=== PATIENT | female | born 1965 | race Caucasian/White ===

== ENCOUNTER 2016-11-30 23:56 | Emergency (ER) | payer SELFPAY ==
[~2016-11-30] VITALS: Ht 165.1 cm; Wt 82.5 kg
[~2016-11-30 23:56] MED LIST: CIPR500T4 PO; HYDR-906 PO; METR500T PO; ONDA4TAB14 PO
[2016-12-01 00:33] VITALS: Ht 165.1 cm; Wt 82.5 kg
[2016-12-01] MEDS ORDERED: ACETAMINOPHEN 325 MG TAB PO ONE (02:30)
[2016-12-01 02:49] LABS: ADD SCAN DIFF NO
[2016-12-01 02:51] LABS: BASOPHILS % 0.1 % (0.0-2.0); EOSINOPHILS % 0.1 % (0.0-7.0); HEMATOCRIT 32.4 % (37.0-47.0); HEMOGLOBIN 9.7 g/dl (12.0-16.0); LYMPHOCYTES # 1.2 10^3/ul (0.8-2.9); LYMPHOCYTES % 13.9 % (15.0-51.0); MEAN CORPUSCULAR HEMOGLOBIN 21.1 pg (29.0-33.0); MEAN CORPUSCULAR HGB CONC 29.9 g/dl (32.0-37.0); MEAN CORPUSCULAR VOLUME 70.6 fl (82.0-101.0); MEAN PLATELET VOLUME 9.2 fl (7.4-10.4); MONOCYTE # 0.4 10^3/ul (0.3-0.9); MONOCYTES % 4.4 % (0.0-11.0); NEUTROPHILS % 81.2 % (39.0-77.0); PLATELET COUNT 408 10^3/UL (140-415); RED BLOOD COUNT 4.59 10^6/ul (4.20-5.40); RED CELL DISTRIBUTION WIDTH 18.8 % (11.5-14.5); WHITE BLOOD COUNT 8.6 10^3/ul (4.8-10.8)
[2016-12-01 02:53] LABS: ADD UMIC YES; UR BILIRUBIN (Dip) NEGATIVE (NEGATIVE); UR BLOOD (Dip) 1+ (NEGATIVE); UR CLARITY CLEAR (CLEAR); UR COLOR LT. YELLOW (YELLOW); UR GLUCOSE (Dip) NEGATIVE (NEGATIVE); UR KETONES (Dip) NEGATIVE (NEGATIVE); UR LEUKOCYTE ESTERASE (Dip) NEGATIVE (NEGATIVE); UR NITRITE (Dip) NEGATIVE (NEGATIVE); UR TOTAL PROTEIN (Dip) NEGATIVE (NEGATIVE); UR UROBILINOGEN (Dip) 0.2 E.U./dL (0.1-1.0)
[2016-12-01 03:12] LABS: ALBUMIN 5.1 g/dl (3.3-4.9); ALBUMIN/GLOBULIN RATIO 1.5; BILIRUBIN,INDIRECT 0.3 mg/dl (0-1.1); BILIRUBIN,TOTAL 0.3 mg/dl (0.2-1.3); CALCIUM 9.9 mg/dl (8.4-10.2); CREATININE 0.76 mg/dl (0.44-1.00); TOTAL PROTEIN 8.5 g/dl (6.1-8.1)
[2016-12-01 03:13] LABS: UR SQUAMOUS EPITHELIAL CELL RARE; URINE RBCS 0-2 /HPF (0)
--- NOTE | 2016-12-01 04:10 | ERA ---
ER Documentation Chief Complaint Date/Time DATE: 12/01/16 TIME: 04:07 Chief Complaint flank pain, oliguria,[place] HPI This is a 51-year-old female presenting for mild epigastric tenderness 1 week. Patient describes the pain as radiating to the back. Patient has a history of a cholecystectomy and an appendectomy. Patient has not had symptoms like this before. Tolerates p.o. Patient denies anorexia, weight loss, migrating pain, constipation, diarrhea, postprandial abdominal pain, new or recently changed medications, genital pain or ingestion of new or undercooked food. Patient has not taken any medication to relieve the symptoms. Patient denies any alleviating or relieving factors including position of body. ROS All systems reviewed and are negative except as per history of present illness. Medications Home Meds Active Scripts Ranitidine Hcl* (Zantac*) 150 Mg Tablet, 150 MG PO BID Y for EPIGASTRIC PAIN, # 30 TAB Prov:MARTELL STEPHENSON PA-C 12/01/16 Hydrocodone/Acetaminophen ([place] 5-325 Tablet) 1 Each Tablet, 1 TAB PO Q6H Y for PAIN, #20 TAB Prov:SHIRA MARQUES NP 02/21/16 Ondansetron (Ondansetron Odt) 4 Mg Tab.rapdis, 4 MG PO Q8 Y for NAUSEA AND/OR VOMITING, #30 TAB Prov:SHIRA MARQUES NP 02/21/16 Ciprofloxacin Hcl* (Ciprofloxacin Hcl*) 500 Mg Tablet, 500 MG PO BID for 10 Days , TAB Prov:SHIRA MARQUES NP 02/21/16 Metronidazole* (Flagyl*) 500 Mg Tablet, 500 MG PO TID for 10 Days, TAB Prov:SHIRA MARQUES NP 02/21/16 Reported Medications [none] Unknown Strength No Conflict Check 02/21/16 Allergies Allergies: Coded Allergies: No Known Allergy (Verified , 10/25/07) PMhx/Soc History of Surgery: Yes (appendectomy, cholecystectomy) Anesthesia Reaction: No Hx Neurological Disorder: No Hx Respiratory Disorders: No Hx Cardiac Disorders: No Hx Psychiatric Problems: No Hx Miscellaneous Medical Probl: Yes (history of diverticulitis) Hx Alcohol Use: No Hx Substance Use: No Hx Tobacco Use: No Smoking Status: Never smoker Physical Exam Vitals Vital Signs Date Time Temp Pulse Resp B/P Pulse Ox O2 Delivery O2 Flow Rate FiO2 12/01/16 00:33 98.3 74 18 135/62 99 Physical Exam Const: [] Head: Atraumatic Eyes: Normal Conjunctiva ENT: Normal External Ears, Nose and Mouth. Neck: Full range of motion..~ No meningismus. Resp: Clear to auscultation bilaterally Cardio: Regular rate and rhythm, no murmurs Abd: Soft, non tender, non distended. Normal bowel sounds Skin: No petechiae or rashes Back: No midline or flank tenderness Ext: No cyanosis, or edema Neur: Awake and alert Psych: Normal Mood and Affect Result Diagram: 12/01/16 0240 12/01/16 0240 Results 24 hrs Laboratory Tests Test 12/01/16 02:40 White Blood Count 8.610^3/ul Red Blood Count 4.5910^6/ul Hemoglobin 9.7g/dl Hematocrit 32.4% Mean Corpuscular Volume 70.6fl Mean Corpuscular Hemoglobin 21.1pg Mean Corpuscular Hemoglobin Concent 29.9g/dl Red Cell Distribution Width 18.8% Platelet Count 65152^3/UL Mean Platelet Volume 9.2fl Neutrophils % 81.2% Lymphocytes % 13.9% Monocytes % 4.4% Eosinophils % 0.1% Basophils % 0.1% Nucleated Red Blood Cells % 0.0/100WBC Neutrophils # 7.010^3/ul Lymphocytes # 1.210^3/ul Monocytes # 0.410^3/ul Eosinophils # 0.010^3/ul Basophils # 0.010^3/ul Nucleated Red Blood Cells # 0.010^3/ul Urine Color LT. YELLOW Urine Clarity CLEAR Urine pH 6.0 Urine Specific Edwards <=1.005 Urine Ketones NEGATIVE Urine Nitrite NEGATIVE Urine Bilirubin NEGATIVE Urine Urobilinogen 0.2 E.U./dL Urine Leukocyte Esterase NEGATIVE Urine Microscopic RBC 0-2/HPF Urine Microscopic WBC NONE SEEN/HPF Urine Squamous Epithelial Cells RARE Urine Hemoglobin 1+ Urine Glucose NEGATIVE% Urine Total Protein NEGATIVE Sodium Level 143mmol/L Potassium Level 4.0mmol/L Chloride Level 106mmol/L Carbon Dioxide Level 27mmol/L Anion Gap 14 Blood Urea Nitrogen 13mg/dl Creatinine 0.76mg/dl Glucose Level 121mg/dl Calcium Level 9.9mg/dl Total Bilirubin 0.3mg/dl Direct Bilirubin 0.00mg/dl Indirect Bilirubin 0.3mg/dl Aspartate Amino Transf (AST/SGOT) 24IU/L Alanine Aminotransferase (ALT/SGPT) 29IU/L Alkaline Phosphatase 106IU/L Troponin I < 0.012ng/ml Total Protein 8.5g/dl Albumin 5.1g/dl Globulin 3.40g/dl Albumin/Globulin Ratio 1.50 Lipase 132U/L Current Medications Medications (Trade) Dose Ordered Sig/Leo Route PRN Reason Start Time Stop Time Status Last Admin Dose Admin Acetaminophen (Tylenol Tab) 650 mg ONCE ONCE PO 12/01/16 02:30 12/01/16 02:31 DC 12/01/16 02:54 Procedures/MDM Patient was evaluated and worked up for epigastric abdominal discomfort. Patient was given acetaminophen for pain relief. The workup included labs and a test. Labs were unremarkable only showing some hematuria. My supervising physician recommended to get troponin to rule out [place]. Went ahead and obtained a troponin which had a negative result. The current most likely diagnosis is gastritis. The treatment plan with us include Zantac for symptomatic relief. At this time I do not suspect acute pancreatitis, cholangitis, myocardial/ Intestinal ischemia, pneumonia, hernia, or esophageal rupture. I am also unable to rule out this time any cause of chronic iron deficiency anemia including cancer, ulcer, etc. On repeat exam, the abdomen has slightly improved with less tenderness. I spoke to my attending who agrees with the assessment and plan. The patient is well appearing, and tolerates PO. I have spoke with the patient regarding their condition and future management. They have verbally responded that they understand their status and treatment plan. The patients vitals are stable, and their current condition is appropriate for discharge. The patient will be given discharge instructions with return precautions. Departure Diagnosis: Primary Impression: Lower abdominal pain Condition: Stable Additional Instructions: Follow up with your PCP within the next 1-3 days for a more thorough evaluation and a possible referral to a specialist. Return the the emergency department immediately if symptoms worsen or change. If you have any questions regarding medications, ask your pharmacist or us before you leave. If any adverse reactions occur while taking your medications, discontinue the treatment and return to the emergency department immediately. Take your medications as directed, and complete the entire course of treatment. MARTELL STEPHENSON PA-C Dec 01, 2016 04:10
[2016-12-01] MEDS ORDERED: RANI150T9 PO (04:28)
[2016-12-01 04:39] VITALS: BP 123/63; PULSE 67; RESP 16
== END 2016-12-01 04:41 | disposition home or self-care (01) ==
LOC: FTE 23:56
DX: R10.30 Lower abdominal pain, unspecified (principal)
CPT/HCPCS: 36415; 80053; 81001; 83690; 84484; 85025; 99283

== ENCOUNTER 2016-12-06 23:23 | Emergency (ER) | payer SELFPAY ==
[~2016-12-06] VITALS: Ht 162.6 cm; Wt 81.7 kg
[~2016-12-06 23:23] MED LIST changes: +RANI150T9 PO
[2016-12-06 23:25] VITALS: Ht 162.6 cm; Wt 81.7 kg
--- NOTE | 2016-12-07 00:16 | ERA ---
ER Documentation Chief Complaint Date/Time DATE: 12/07/16 TIME: 00:16 Chief Complaint right flank pain x 3 days HPI The patient is a 51-year-old female, presenting to the ER because of right flank and right lower back pain intermittently for 1 week. She was in the ER approximately 5 days ago. She denies fever, chills, neck pain, chest pain, dyspnea. She complains of nausea and vomiting mostly mucus, denies diarrhea, constipation, dysuria. She does not smoke nor drink Past medical history: Gastritis Past surgical history: Appendectomy, cholecystectomy ROS All systems reviewed and are negative except as per history of present illness. Medications Home Meds Active Scripts Hydrocodone/Acetaminophen ([place] 5-325 Tablet) 1 Each Tablet, 1 TAB PO Q6H Y for PAIN, #7 TAB Prov:MARTELL NICOLE MD 12/07/16 Ranitidine Hcl* (Zantac*) 150 Mg Tablet, 150 MG PO BID Y for EPIGASTRIC PAIN, # 30 TAB Prov:MARTELL STEPHENSON PA-C 12/01/16 Reported Medications Acetaminophen* (Acetaminophen*) 500 MG Extra Strength Tablet, 2000 MG PO Q4H Y for PAIN AND OR ELEVATED TEMP, TAB 12/07/16 Discontinued Reported Medications [none] Unknown Strength No Conflict Check 02/21/16 Discontinued Scripts Hydrocodone/Acetaminophen ([place] 5-325 Tablet) 1 Each Tablet, 1 TAB PO Q6H Y for PAIN, #20 TAB Prov:SHIRA MARQUES NP 02/21/16 Ondansetron (Ondansetron Odt) 4 Mg Tab.rapdis, 4 MG PO Q8 Y for NAUSEA AND/OR VOMITING, #30 TAB Prov:SHIRA MARQUES NP 02/21/16 Ciprofloxacin Hcl* (Ciprofloxacin Hcl*) 500 Mg Tablet, 500 MG PO BID for 10 Days , TAB Prov:SHIRA MARQUES NP 02/21/16 Metronidazole* (Flagyl*) 500 Mg Tablet, 500 MG PO TID for 10 Days, TAB Prov:SHIRA MARQUES NP 02/21/16 Allergies Allergies: Coded Allergies: No Known Allergy (Unverified , 12/07/16) PMhx/Soc History of Surgery: Yes (appendectomy, cholecystectomy) Anesthesia Reaction: No Hx Neurological Disorder: No Hx Respiratory Disorders: No Hx Cardiac Disorders: No Hx Psychiatric Problems: No Hx Miscellaneous Medical Probl: Yes (history of diverticulitis) Hx Alcohol Use: No Hx Substance Use: No Hx Tobacco Use: No Physical Exam Vitals Vital Signs Date Time Temp Pulse Resp B/P Pulse Ox O2 Delivery O2 Flow Rate FiO2 12/07/16 03:34 59 16 90/56 100 Room Air 12/07/16 01:26 67 14 114/67 99 Room Air 12/06/16 23:25 97.8 81 20 135/89 97 Physical Exam Const: No acute distress. Head: Atraumatic. Eyes: Normal Conjunctiva. ENT: Normal External Ears, Nose and Mouth. Neck: Full range of motion. No meningismus. Resp: Clear to auscultation bilaterally. Cardio: Regular rate and rhythm. Abd: Soft, non distended, normal bowel sounds, mild right flank tenderness, no right lower quadrant, right upper quadrant, epigastric, CVA tenderness. Skin: No petechiae or rashes. Back: No midline or flank tenderness. Ext: No cyanosis, or edema. Neur: Awake and alert. No focal deficit Psych: Normal Mood and Affect. Result Diagram: 12/07/16 0030 12/07/16 0030 Results 24 hrs Laboratory Tests Test 12/07/16 00:30 12/07/16 00:39 White Blood Count 10.210^3/ul Red Blood Count 4.5010^6/ul Hemoglobin 9.4g/dl Hematocrit 31.5% Mean Corpuscular Volume 70.0fl Mean Corpuscular Hemoglobin 20.9pg Mean Corpuscular Hemoglobin Concent 29.8g/dl Red Cell Distribution Width 18.5% Platelet Count 18599^3/UL Mean Platelet Volume 9.8fl Neutrophils % 75.2% Lymphocytes % 16.7% Monocytes % 6.4% Eosinophils % 1.3% Basophils % 0.2% Nucleated Red Blood Cells % 0.0/100WBC Neutrophils # 7.710^3/ul Lymphocytes # 1.710^3/ul Monocytes # 0.710^3/ul Eosinophils # 0.110^3/ul Basophils # 0.010^3/ul Nucleated Red Blood Cells # 0.010^3/ul Sodium Level 138mmol/L Potassium Level 4.0mmol/L Chloride Level 102mmol/L Carbon Dioxide Level 24mmol/L Anion Gap 16 Blood Urea Nitrogen 16mg/dl Creatinine 1.14mg/dl Glucose Level 101mg/dl Calcium Level 9.5mg/dl Total Bilirubin 0.2mg/dl Direct Bilirubin 0.00mg/dl Indirect Bilirubin 0.2mg/dl Aspartate Amino Transf (AST/SGOT) 25IU/L Alanine Aminotransferase (ALT/SGPT) 32IU/L Alkaline Phosphatase 91IU/L Total Protein 8.3g/dl Albumin 4.9g/dl Globulin 3.40g/dl Albumin/Globulin Ratio 1.44 Lipase 215U/L Bedside Urine pH (LAB) 6.0 Bedside Urine Protein (LAB) 1+ Bedside Urine Glucose (UA) Negative Bedside Urine Ketones (LAB) Negative Bedside Urine Blood 2+ Bedside Urine Nitrite (LAB) Negative Bedside Urine Leukocyte Esterase (L Negative Current Medications Medications (Trade) Dose Ordered Sig/Leo Route PRN Reason Start Time Stop Time Status Last Admin Dose Admin Sodium Chloride (NS) 1,000 ml @ 1,000 mls/hr Q1H ONCE IV 12/07/16 00:30 12/07/16 01:29 DC 12/07/16 00:33 Morphine Sulfate (morphine) 4 mg ONCE STAT IV 12/07/16 00:28 12/07/16 00:29 DC 12/07/16 00:34 Ondansetron HCl (Zofran Inj) 4 mg ONCE STAT IV 12/07/16 00:28 12/07/16 00:29 DC 12/07/16 00:33 Procedures/[place] [id number] Radiology Main Line: [phone] DIAGNOSTIC IMAGING REPORT Patient: RAE RICKS : 1965 Age: 51 Sex: F MR #: [id number] DOS: 12/07/16 0038 Ordering MD: MARTELL NICOLE MD Location: E/R Room/Bed: PROCEDURE: CT ABDOMEN/PELVIS WITHOUT CONTRAST CLINICAL INDICATION: 51-year-old female with right flank pain. TECHNIQUE: The study was performed utilizing a [employer] VCT 64-slice CT scanner. Direct axial sections were obtained through the abdomen and pelvis without the use of intravenous contrast material. Sagittal and coronal reformations were obtained. One or more of the following dose reduction techniques were utilized: automated exposure control, adjustment of the mA and/ or kV according to patient's size or use of iterative reconstruction technique. The images were reviewed on a PACS workstation. CTD/vol = 18.7 mGy; Total Exam DLP = 1057.5 mGy-cm. COMPARISON: CT abdomen/pelvis February 21, 2016. FINDINGS: There is minimal bibasilar subsegmental atelectasis. There is no evidence for significant pleural effusion. The liver has a normal size and contour without focal areas of abnormal density. No intrahepatic nor extrahepatic biliary ductal dilatation is seen. The gallbladder is not visualized consistent with prior cholecystectomy. The pancreas is without areas of abnormal attenuation. The spleen is identified and has a normal size without abnormal density. The adrenal glands are unremarkable. There is mild right-sided hydroureteronephrosis with an obstructing calculus at the right ureterovesical junction region measuring approximately 3 x 3 x 2 mm. There are small nonobstructing left lower pole renal deana calculi with the largest measuring approximately 4 x 3 x 3 mm. The urinary bladder contains urine. There are multiple diverticula identified throughout the colon without surrounding inflammatory changes. The appendix is not visualized consistent with prior appendectomy. The uterus is anteflexed. The left ovary is again noted to be enlarged measuring approximately 4.0 x 4.5 x 4.1 cm. The aortoiliac vessels are without aneurysmal dilatation. The osseous structures are intact. IMPRESSION: 1. Mild right-sided hydroureteronephrosis with an obstructing right ureterovesical junction 3 x 2 mm calculus. 2. Nonobstructing left lower pole renal calculi. 3. Status post cholecystectomy. 4. Colonic diverticulosis. 5. Status post appendectomy. 6. Persistently enlarged left ovary. .Rayray Farley MD, Date Time Electronically viewed and signed by .Rayray Farley MD, on 12/07/2016 02:34 .M/ CC: MARTELL NICOLE MD MEDICAL MAKING DECISION: The patient is a 51-year-old female, presenting with acute right ureterolithiasis. She was treated with morphine 4 mg IV for pain and Zofran 4 mg IV for nausea and 1 L normal saline for clinical dehydration with good response. The differential diagnoses considered include but are not limited to cholelithiasis, cholecystitis, cystitis, pancreatitis, hepatitis, gastritis, peptic ulcer disease, gastric ulcer, appendicitis, diverticulitis, cholangitis, choledocholithiasis, partial small bowel obstruction. Departure Diagnosis: Primary Impression: Ureterolithiasis Additional Impression: Anemia Condition: Good Comments She was discharged with [place] and Motrin I discussed the findings with the patient. I advised the patient to follow-up with the on-call urologist Dr. Grimes in about 1-2 days, sooner if needed and return if any concern. The patient's blood pressure was elevated (>120/80) but appears stable without evidence of hypertension emergency or urgency. The patient was counseled about the risks of hypertension and urged to pursue outpatient monitoring and therapy within a week with their primary care physician. MARTELL NICOLE MD Dec 07, 2016 00:16
[2016-12-07] MEDS ORDERED: morphine 4 MG/ML VIAL IV STA (00:28)
[2016-12-07] MEDS ORDERED: ONDANSETRON 4 MG INJ IV STA (00:28)
[2016-12-07] MEDS ORDERED: SOD CHLORIDE 0.9% 1,000 ML IV ONE (00:30)
[2016-12-07 00:37] LABS: URINE BLOOD (Dip) POC 2+ (NEGATIVE)
[2016-12-07 00:45] LABS: ADD SCAN DIFF NO
[2016-12-07 00:46] LABS: BASOPHILS % 0.2 % (0.0-2.0); EOSINOPHILS # 0.1 10^3/ul (0.0-0.5); EOSINOPHILS % 1.3 % (0.0-7.0); HEMATOCRIT 31.5 % (37.0-47.0); HEMOGLOBIN 9.4 g/dl (12.0-16.0); LYMPHOCYTES # 1.7 10^3/ul (0.8-2.9); LYMPHOCYTES % 16.7 % (15.0-51.0); MEAN CORPUSCULAR HEMOGLOBIN 20.9 pg (29.0-33.0); MEAN CORPUSCULAR HGB CONC 29.8 g/dl (32.0-37.0); MEAN PLATELET VOLUME 9.8 fl (7.4-10.4); MONOCYTE # 0.7 10^3/ul (0.3-0.9); MONOCYTES % 6.4 % (0.0-11.0); NEUTROPHIL # 7.7 10^3/ul (1.6-7.5); NEUTROPHILS % 75.2 % (39.0-77.0); PLATELET COUNT 414 10^3/UL (140-415); RED CELL DISTRIBUTION WIDTH 18.5 % (11.5-14.5); WHITE BLOOD COUNT 10.2 10^3/ul (4.8-10.8)
[2016-12-07 01:03] LABS: ALBUMIN 4.9 g/dl (3.3-4.9); ALBUMIN/GLOBULIN RATIO 1.44; BILIRUBIN,INDIRECT 0.2 mg/dl (0-1.1); BILIRUBIN,TOTAL 0.2 mg/dl (0.2-1.3); CALCIUM 9.5 mg/dl (8.4-10.2); CREATININE 1.14 mg/dl (0.44-1.00); TOTAL PROTEIN 8.3 g/dl (6.1-8.1)
[2016-12-07] MEDS ORDERED: ACET-141 PO (02:05)
--- NOTE | 2016-12-07 02:34 | RADRPT ---
PROCEDURE: CT ABDOMEN/PELVIS WITHOUT CONTRAST CLINICAL INDICATION: 51-year-old female with right flank pain. TECHNIQUE: The study was performed utilizing a [employer] [facility] [employer] V[facility] 64-slice CT scanner. Direct axia l sections were obtained through the abdomen and pelvis without the use of intravenous contrast mate rial. Sagittal and coronal reformations were obtained. One or more of the following dose reduction t echniques were utilized: automated exposure control, adjustment of the mA and/or kV according to pat ient's size or use of iterative reconstruction technique. The images were reviewed on a PACS workst at[employer]. CTD/vol = 18.7 mGy; Total Exam DLP = 1057.5 mGy-cm. COMPARISON: CT abdomen/pelvis February 21, 2016. FINDINGS: There is minimal bibasilar subsegmental atelectasis. There is no evidence for significant pleural e ffusion. The liver has a normal size and contour without focal areas of abnormal density. No intrah epatic nor extrahepatic biliary ductal dilatation is seen. The gallbladder is not visualized consist ent with prior cholecystectomy. The pancreas is without areas of abnormal attenuation. The spleen i s identified and has a normal size without abnormal density. The adrenal glands are unremarkable. Th ere is mild right-sided hydroureteronephrosis with an obstructing calculus at the right ureterovesic al junction region measuring approximately 3 x 3 x 2 mm. There are small nonobstructing left lower pole renal deana calculi with the largest measuring approximately 4 x 3 x 3 mm. The urinary bladder contains urine. There are multiple diverticula identified throughout the colon without surrounding i nflammatory changes. The appendix is not visualized consistent with prior appendectomy. The uterus is anteflexed. The left ovary is again noted to be enlarged measuring approximately 4.0 x 4.5 x 4.1 cm. The aortoiliac vessels are without aneurysmal dilatation. The osseous structures are intact. IMPRESSION: 1. Mild right-sided hydroureteronephrosis with an obstructing right ureterovesical junction 3 x 2 m m calculus. 2. Nonobstructing left lower pole renal calculi. 3. Status post cholecystectomy. 4. Colonic diverticulosis. 5. Status post appendectomy. 6. Persistently enlarged left ovary. .Rayray Farley MD, MD Date Time Electronically viewed and signed by .Rayray Farley MD, MD on 12/07/2016 02:34 .M/
[2016-12-07 03:34] VITALS: BP 90/56; PULSE 59; RESP 16
[2016-12-07] MEDS ORDERED: HYDR-906 PO (03:37)
== END 2016-12-07 03:48 | disposition home or self-care (01) ==
LOC: E/R 23:23
DX: N20.1 Calculus of ureter (principal); D64.9 Anemia, unspecified; R11.2 Nausea with vomiting, unspecified
CPT/HCPCS: 36415; 74176; 80053; 81003; 83690; 85025; 96374; 96375; 99285; J2270; J2405; J7030

== ENCOUNTER 2017-08-22 12:13 | Emergency (ER) | END 2017-08-22 16:13 | disposition home or self-care (01) ==

== ENCOUNTER 2019-04-27 16:40 | Emergency (ER) | payer MEDICAID ==
[~2019-04-27] VITALS: Wt 78.0 kg
[~2019-04-27 16:40] MED LIST changes: +CEPH-443 PO; +DOCU-144 PO; +HYDR-3980 PO; -HYDR-906 PO; +IBUP-1542 PO; -RANI150T9 PO
[2019-04-27] MEDS ORDERED: ONDANSETRON 4 MG INJ IV STA (17:02)
[2019-04-27] MEDS ORDERED: SOD CHLORIDE 0.9% 1,000 ML IV STA (17:02)
[2019-04-27] MEDS ORDERED: KETOROLAC 15 MG INJ IV STA (17:02)
[2019-04-27] MEDS ORDERED: morphine 4 MG/ML VIAL IV STA (17:02)
[2019-04-27] MEDS ORDERED: CEFTRIAXONE 1 GM/50 ML (PMX) 50 ML IVPB ONE (18:00)
[2019-04-27 18:46] VITALS: BP 114/56; PULSE 63; RESP 16
== END 2019-04-27 18:47 | disposition home or self-care (01) ==
LOC: FTE 16:40
DX: N39.0 Urinary tract infection, site not specified (principal)
CPT/HCPCS: 36415; 80053; 81001; 81025; 83690; 85025; 87086; 96374; 96375; J0696; J1885; J2270; J2405; J7030; Z7502